=== PATIENT | female | born 1965 | race Caucasian/White ===

== ENCOUNTER → 2017-07-03 | Outpatient (CLI) | payer MEDICARE, OTHER ==
--- NOTE | 2017-07-08 08:40 | MM ---
Reason for exam: screening (asymptomatic). Last mammogram was performed 6 years and 9 months ago. History: Patient is postmenopausal and is nulliparous. Family history of breast cancer in aunt. Took hormonal contraceptives for 9 years. Physical Findings: A clinical breast exam by your physician is recommended on an annual basis and results should be correlated with mammographic findings. MG 3D Screening Mammo W/Cad Bilateral CC and MLO view(s) were taken. Prior study comparison: September 25, 2010, bilateral digital screening mammo w/CAD. There are scattered fibroglandular densities. There is chronic nodularity in the left breast. Benign secretory calcifications on the right breast and benign bilateral oil cysts are new/increased from prior. No significant changes when compared with prior studies. ASSESSMENT: Negative, BI-RAD 1 RECOMMENDATION: Routine screening mammogram of both breasts in 1 year.
== END | disposition home or self-care (01) ==
LOC: RADMAMWWP 14:41
PROVIDERS: ATTEND Family Medicine
DX: Z12.31 Encounter for screening mammogram for malignant neoplasm of breast (principal)
CPT/HCPCS: 77063; G0202

== ENCOUNTER → 2018-09-23 | Outpatient (CLI) | payer MEDICARE, OTHER ==
--- NOTE | 2018-09-23 11:49 | CT ---
EXAMINATION TYPE: CT angio chest DATE OF EXAM: 09/23/2018 COMPARISON: CTA chest January 06, 2016 HISTORY: Shortness of breath with history of PE CT DLP: 816.5 mGycm. Automated Exposure Control for Dose Reduction was Utilized. CONTRAST: CTA scan of the thorax is performed with IV Contrast, patient injected with 100 mL of Isovue 370, pul monary embolism protocol. MIP Images are created on CT scanner and reviewed. FINDINGS: LUNGS: Respiratory motion artifact degradation is seen making evaluation suboptimal. There is left mi dlung linear scarring and/or atelectasis near axial image 59 redemonstrated new from prior. No pleura l effusion or pneumothorax is evident bilaterally. No suspicious focal consolidation is seen. Tracheo bronchial tree is patent. No suspicious parenchymal masses are noted. MEDIASTINUM: There is suboptimal bolus with near equal contrast seen in right and left heart systems but there is no CT evidence for acute central or lobar or even segmental pulmonary embolism. Cannot e xclude small subsegmental pulmonary embolism in entirety. There are no new greater than 1 cm hilar o r mediastinal lymph nodes. Prominent but subcentimeter prevascular lymph nodes near axial image 43 ar e redemonstrated and felt stable. Tiny pericardial effusion is seen anterior inferior aspect axial im age 89 slightly larger from prior. OTHER: Liver remains low dense consistent with diffuse fatty infiltration. Lap band device epigastric region is stable in position. Moderate to severe multilevel spurring in the mid to lower thoracic sp ine is present. IMPRESSION: 1. Suboptimal study without CT evidence of clinically significant pulmonary embolism. No suspicious n ew acute pulmonary process.
== END ==
LOC: RADCTMAIN 10:21
PROVIDERS: ATTEND Family Medicine
DX: R07.9 Chest pain, unspecified (principal); R06.02 Shortness of breath
CPT/HCPCS: 82565; 84520; 71275; 36415; Q9967

== ENCOUNTER → 2018-11-06 | Outpatient (CLI) | payer MEDICARE, OTHER ==
--- NOTE | 2018-11-06 08:54 | US ---
EXAMINATION TYPE: US abdomen complete DATE OF EXAM: 11/06/2018 COMPARISON: NONE CLINICAL HISTORY: R10.84 gen abd pain R11.0 nausea. Intermittent ABD pain for 2 months, nausea, histo ry of lap band surgery EXAM MEASUREMENTS: Liver Length: 19.9 cm Gallbladder Wall: 0.2 cm CBD: 0.3 cm Spleen: 12.0 cm Right Kidney: 11.5 x 5.0 x 4.6 cm Left Kidney: 11.2 x 5.9 x 4.7 cm Technical limitations due to patient's body habitus and large amount of overlying bowel content Pancreas: Obscured by bowel gas Liver: limited evaluation, enlarged, heterogeneous, attenuating, unable to penetrate Gallbladder: no evidence of stones as visualized Evidence for sonographic Rodriguez's sign: no CBD: limited evaluation Spleen: appears wnl Right Kidney: no evidence of hydronephrosis Left Kidney: cystic area medial = 1.0 x 0.9 x 1.3cm Upper IVC: Obscured by overlying bowel gas Abd Aorta: obscured by overlying bowel gas The liver is enlarged and heterogenous. The intrahepatic portion of the IVC and proximal abdominal ao rta are within normal limits. There is no evidence of cholelithiasis. Common bile duct is unremarka ble. The visualized portions of the pancreas are homogenous. The spleen is unremarkable. Kidneys a re symmetric and free of hydronephrosis. No solid renal lesions are seen. Left renal cysts noted. IMPRESSION: 1. Hepatomegaly with probable underlying hepatic steatosis versus diffuse hepatocellular disease. 2. Left renal cyst.
== END | disposition home or self-care (01) ==
LOC: RADUSWWP 08:07
PROVIDERS: ATTEND Family Medicine
DX: N28.1 Cyst of kidney, acquired (principal); R16.0 Hepatomegaly, not elsewhere classified
CPT/HCPCS: 76700

== ENCOUNTER → 2021-02-15 | Outpatient (CLI) | payer MEDICARE, OTHER | END | disposition home or self-care (01) | CPT/HCPCS: 78226; A9537 ==

== ENCOUNTER → 2021-10-17 | Outpatient (CLI) | payer MEDICARE, OTHER ==
--- NOTE | 2021-10-18 12:38 | MM ---
Reason for exam: screening (asymptomatic). Last mammogram was performed 4 years and 4 months ago. History: Patient is postmenopausal and is nulliparous. Family history of breast cancer in aunt. Took hormonal contraceptives for 9 years. Physical Findings: A clinical breast exam by your physician is recommended on an annual basis and results should be correlated with mammographic findings. MG 3D Screening Mammo W/Cad Bilateral CC and MLO view(s) were taken. Prior study comparison: July 03, 2017, bilateral MG 3d screening mammo w/cad. There are scattered fibroglandular densities. There is chronic nodularity in the left breast. Benign bilateral secretory and oil cyst calcifications. No significant changes when compared with prior studies. ASSESSMENT: Benign, BI-RAD 2 RECOMMENDATION: Routine screening mammogram of both breasts in 1 year.
== END | disposition home or self-care (01) ==
LOC: RADMAMWWP 07:01
PROVIDERS: ATTEND Family Medicine
DX: Z12.31 Encounter for screening mammogram for malignant neoplasm of breast (principal)
CPT/HCPCS: 77063; 77067

== ENCOUNTER → 2022-01-02 | Outpatient (CLI) | payer MEDICARE, OTHER ==
[2022-01-02 15:25] VITALS: BP 152/84; PULSE 85; RESP 12; TEMP 98.9; BMI 46.2
--- NOTE | 2022-01-02 15:34 | P.BASOAP ---
Subjective Progress Note Date: 01/02/22 Principal diagnosis: Morbid obesity 56-year-old female with history of prior lap band placement. Patient says that starting 8 weeks ago she had dysphagia with food was getting caught frequently. The symptoms lasted for about 6 weeks in a been absent for the last 2 weeks. Mild discomfort when that was happening. No pain now. No heartburn. Patient thought her band might be empty. Objective - Vital Signs Vital signs: Vital Signs Temp 98.9 F 01/02/22 14:53 Pulse 85 01/02/22 14:53 Resp 12 01/02/22 14:53 BP 152/84 01/02/22 14:53 Pulse Ox FiO2 Intake & Output 01/01/22 01/02/22 01/02/22 18:59 06:59 18:59 Weight 118.388 kg - Exam Abdomen: Soft, nontender, nondistended Assessment/Plan (1) Morbid obesity Narrative/Plan: 56-year-old female with morbid obesity. Options reviewed. Will empty the band at this time. Check esophagogram. The patient's lap band port was palpated. The site was aseptically prepped. The Mar needle was advanced into the port. A total of 1 ml of fluid was removed. Band is now empty. Pressure was held and a sterile dressing was applied. Plan: Date: 01/02/22 Initial Weight: Initial BMI: Current Weight: 118.388 kg Current BMI: 46.2 Type of Surgery: Total Volume in Band: Previous Volume: Volume Removed: Volume Added: Band Size:
== END | disposition home or self-care (01) ==
LOC: BARWHC3 14:53
PROVIDERS: ATTEND Surgery
DX: E66.01 Morbid (severe) obesity due to excess calories (principal); Z68.42 Body mass index [BMI] 45.0-49.9, adult
CPT/HCPCS: 99212

== ENCOUNTER → 2022-01-23 | Outpatient (CLI) | payer MEDICARE, OTHER ==
--- NOTE | 2022-01-23 15:17 | FL ---
EXAMINATION TYPE: FL barium swallow DATE OF EXAM: 01/23/2022 CLINICAL INDICATION: 56-year-old female R1 3.10, unspecified dysphagia. Patient with history of lap b and placement 2005. Sensation of food getting stuck at the mid chest. COMPARISON: Total Fluoroscopy Time: 40 seconds 29 images obtained. FINDINGS: The swallowing mechanism is normal and hypopharyngeal anatomy is preserved. The cervical and thoraci c portions have a normal course and caliber. Very mild occasional tertiary wave contractions are demo nstrated. The mucosa is normal and no persistent filling defect is encountered. No hiatal hernia is p resent. There is prompt passage of contrast from the esophagus in the proximal stomach. Patient's lap band is visualized. There is approximately 30 degree angulation of the left and an adequate passage of contr ast across the lap band into the mid to distal stomach. IMPRESSION: 1. No restriction at the lap band. 30 degrees of angulation of the lap-band is unchanged from the [facility]'s 09/23/2018 CT chest. 2. Otherwise, normal esophagram. No stricture or filling defect.
== END | disposition home or self-care (01) ==
LOC: RADUSWWP 13:11
PROVIDERS: ATTEND Surgery
DX: R13.10 Dysphagia, unspecified (principal)
CPT/HCPCS: 74220

== ENCOUNTER → 2022-01-23 | Outpatient (CLI) | payer MEDICARE, OTHER ==
[2022-01-23 14:34] VITALS: BP 147/81; PULSE 95; RESP 16; TEMP 98.5; BMI 45.7
--- NOTE | 2022-01-23 14:49 | P.BASOAP ---
Subjective Progress Note Date: 01/23/22 Principal diagnosis: Morbid obesity Patient returns after being seen on 01/02. Band was emptied at that time for complaints of dysphagia. 1 mL was removed. Band is now empty. Patient went today for upper GI which shows an no definite obstruction or prolapse on my review. Official report pending. Patient did have an episode of dysphagia chicken over the weekend but doing fine now. Objective - Vital Signs Vital signs: Vital Signs Temp 98.5 F 01/23/22 14:30 Pulse 95 01/23/22 14:30 Resp 16 01/23/22 14:30 BP 147/81 01/23/22 14:30 Pulse Ox FiO2 Intake & Output 01/22/22 01/23/22 01/23/22 18:59 06:59 18:59 Weight 117.027 kg - Exam Abdomen: Soft, nontender, nondistended Assessment/Plan (1) Morbid obesity Narrative/Plan: 56-year-old female with morbid obesity. Doing well with her band empty other than 1 episode of dysphagia over the weekend. Options of band removal or keeping band empty for now are reviewed. She would like to keep the band empty to see how she does. She will follow up with us as needed. Plan: Date: 01/23/22 Initial Weight: 117.027 kg Initial BMI: 45.7 Current Weight: 117.027 kg Current BMI: 45.7 Type of Surgery: Adjustable Gastric Banding Total Volume in Band: 0 Previous Volume: Volume Removed: Volume Added: Band Size:
== END | disposition home or self-care (01) ==
LOC: BARWHC3 12:42
PROVIDERS: ATTEND Surgery
DX: E66.01 Morbid (severe) obesity due to excess calories (principal); Z68.42 Body mass index [BMI] 45.0-49.9, adult
CPT/HCPCS: 99211

== ENCOUNTER → 2023-04-04 | Outpatient (CLI) | payer MEDICARE, OTHER ==
--- NOTE | 2023-04-04 14:32 | P.SLEEP ---
History of Present Illness DATE: 04/04/2023 CONSULTATION/NEW PATIENT EVALUATION HISTORY OF PRESENT ILLNESS/SLEEP-WAKE EVALUATION: 57-year-old lady had been evaluated in the sleep center for obstructive sleep apnea hypopnea syndrome. Home sleep apnea test which was done by another institution on 10/31/2022 showed the patient has obstructive sleep apnea hypopnea syndrome with apnea-hypopnea index 11.4. According to patient sleep test was done while she slept in the chair, subsequently in reality patient has significantly more severe abnormalities of respiration. SLEEP SCHEDULE: Usually sleep schedule from 9 PM to 10 AM. FALLING ASLEEP: Sometimes patient has problems with falling asleep. DURING SLEEP: Patient sleeps on the chair. She snores and wakes up from sleep about 7 times with up to 3 episodes of nocturia. No history of hypnogogical hallucinations, sleep paralysis, or cataplexy. DURING THE DAY/WAKE STATE: In the morning patient wake up tired, has difficulties to pay attention, falling asleep during the day.. [place] sleepiness scale is increased to 12. Patient may take up to 3 naps during the day. PAST MEDICAL HISTORY: Hypertension, acid reflux, hypothyroidism, diabetes mellitus, hyperlipidemia, gout, schizoaffective disorder, asthma, ADD, chronic kidney disease stage 3. PAST SURGICAL HISTORY: None. MEDICATIONS: Lisinopril 10 mg once a day, allopurinol 100 mg once a day, atorvastatin 20 mg once a day, metformin 500 mg 2 tablets twice a day, metoprolol 50 mg once a day, prazosin 1 mg once a day, spironolactone 50 mg once a day, Synthroid 100 g once a day, omeprazole 40 mg once a day, benztropine 1 mg 2 tablets in the morning. SOCIAL HISTORY: Negative for smoking or using alcohol. FAMILY HISTORY: Heart problems, stroke, cancer. REVIEW OF SYSTEMS: Snoring, multiple awakenings from sleep, sleepiness during the day. No fevers. No double vision. No recent chest pain. No shortness of breath. No abdominal pain. No bleeding episodes. No blood in urine. No seizure episodes. PHYSICAL EXAMINATION: GENERAL: A pleasant patient without any distress. VITAL SIGNS: BP 124/79 , HR 81 , RR 12 , weight 246.8 pounds, height 5 foot 1 inches, body mass index 46.4 . HEENT: PERRLA, EOMI. Evaluation of oropharynx showed tongue protrudes midline, low position of soft palate Mallampati 4. NECK: Supple. No JVD. Thyroid is not palpable. 16 inches in circumference. LUNGS: Clear to percussion and to auscultation. Good air exchange. No wheezing or rhonchi. HEART: S1, S2 regular. No murmurs, gallops or rubs. ABDOMEN: Soft and nontender. Bowel sounds are present. No organomegaly appreciated. EXTREMITIES: No clubbing or cyanosis. SCARF AND ANNEAL OPERATOR: Awake, alert, and oriented x3. Cranial nerves 2 to 7 intact. There is no fasciculation or atrophy noted. No focal deficits observed. ASSESSMENT: 1. Snoring, multiple awakenings from sleep, extremely low position of soft palate Mallampati 4, wide neck 16 inches in circumference, significant excessive daytime sleepiness with [place] Sleepiness Scale 12, patient sleeps on the chair. Results of home sleep apnea test which was done in another institution i n the chair position showed apnea-hypopnea index 11 times per hour, which significantly underestimate severity of sleep apnea if patient will be in bed position. 2. Obesity, body mass index 46.4. 3. Hypertension. 4. Gout. 5 history of schizophrenia. 6 . Diabetes mellitus. 7. Hypothyroidism. 8. History of ADD. 9. History of chronic kidney disease stage III. PLAN: 1. CPAP/BiPAP titration for correction of respiratory abnormalities during sleep. 2. Aggressive losing weight 3. Preferable position during sleep on the side. 4. No driving if patient feels any sleepiness. Patient is aware of civil and criminal liability for unsafe driving. 5. Sleep hygiene with regular sleep time for at least 7.5-8 hours. 6. I'll see patient for follow-up visit after sleep study to discuss results of the test and following plan Thank you very much for referring this patient for consultation. Sincerely, Garcia Patton MD, PhD, FAASM. Diplomat of [place] [employer], Sleep Medicine Board by [place] [employer] [place] [employer] [facility] Past Medical History Past Medical History: Asthma, Diabetes Mellitus, GERD/Reflux, Hyperlipidemia, Hypertension, Pulmonary Embolus (PE), Sleep Apnea/CPAP/BIPAP Additional Past Medical History / Comment(s): sinus problems, arthritis History of Any Multi-Drug Resistant Organisms: None Reported Past Surgical History: Adenoidectomy, Bariatric Surgery, Orthopedic Surgery, Tonsillectomy Additional Past Surgical History / Comment(s): sinus surgery, ovarian cyst removed, D&C Past Anesthesia/Blood Transfusion Reactions: Motion Sickness Smoking Status: Never smoker - Past Family History Mother Family Medical History: Diabetes Mellitus, GERD/Reflux, Hypertension, Osteoarthritis (OA) Medications and Allergies Home Medications Medication Instructions Recorded Confirmed Type Atorvastatin [Lipitor] 10 mg PO HS 12/31/14 01/24/22 History Methylphenidate HCl [Ritalin] 30 mg PO DAILY 12/31/14 01/24/22 History Metoprolol Succinate [Toprol XL] 50 mg PO DAILY 12/31/14 01/24/22 History lisinopriL 10 mg PO DAILY 12/31/14 01/24/22 History Albuterol Sulfate [Proair 90 mcg PO QID PRN 01/02/22 01/24/22 History Respiclick] Aspirin [Myra Aspirin EC] 81 mg PO DAILY 01/02/22 01/24/22 History Ketoconazole 2% Cream [Nizoral 2%] 2 % TOPICAL BID 01/02/22 01/24/22 History Levothyroxine Sodium 100 mcg PO DAILY 01/02/22 01/24/22 History Lurasidone HCl [Latuda] 120 mg PO DAILY 01/02/22 01/24/22 History Omeprazole [PriLOSEC] 20 mg PO DAILY 01/02/22 01/24/22 History Spironolactone 25 mg PO DAILY 01/02/22 01/24/22 History allopurinoL [Zyloprim] 100 mg PO DAILY 01/02/22 01/24/22 History metFORMIN HCL ER [Glucophage XR] 500 mg PO BID 01/02/22 01/24/22 History Allergies Allergy/AdvReac Type Severity Reaction Status Date / Time bupropion HCl Allergy Intermediate Rash/Hives Verified 07/16/22 16:16 [From Wellbutrin] ezetimibe [From Zetia] Allergy Intermediate Rash/Hives Verified 07/16/22 16:16 tetracycline Allergy Intermediate Nausea & Verified 07/16/22 16:16 Vomiting Sleep Note - Sleep Note Sleep Note: Temperature: Pulse Rate: Respiratory Rate: Blood Pressure: SpO2: Height: Weight: BMI: Neck Circumference:
== END ==
LOC: 3 N SLEEP 13:43
PROVIDERS: ATTEND Internal Medicine
DX: G47.30 Sleep apnea, unspecified (principal); E66.9 Obesity, unspecified; I10 Essential (primary) hypertension; M10.9 Gout, unspecified; F98.8 Other specified behavioral and emotional disorders with onset usually occurring in childhood and adolescence; E03.9 Hypothyroidism, unspecified; E11.22 Type 2 diabetes mellitus with diabetic chronic kidney disease; N18.30 Chronic kidney disease, stage 3 unspecified; K21.9 Gastro-esophageal reflux disease without esophagitis; J45.909 Unspecified asthma, uncomplicated; E78.5 Hyperlipidemia, unspecified; F20.9 Schizophrenia, unspecified; I26.99 Other pulmonary embolism without acute cor pulmonale; M19.90 Unspecified osteoarthritis, unspecified site; Z79.899 Other long term (current) drug therapy; Z79.51 Long term (current) use of inhaled steroids; Z68.42 Body mass index [BMI] 45.0-49.9, adult; Z79.890 Hormone replacement therapy; Z88.8 Allergy status to other drugs, medicaments and biological substances; Z79.84 Long term (current) use of oral hypoglycemic drugs
CPT/HCPCS: 99211

== ENCOUNTER → 2023-08-01 | Outpatient (CLI) | payer MEDICARE, OTHER ==
--- NOTE | 2023-08-01 15:31 | P.PN ---
Subjective DATE: 08/01/2023 FOLLOW UP VISIT. Patient with obstructive sleep apnea hypopnea syndrome return to sleep center for follow-up visit. Recently patient had sleep study which documented obstructive sleep apnea hypopnea syndrome. Patient was initiated on PAP therapy and today is first visit after treatment was started. Patient was able to use PAP equipment every night for the whole night. The patient does not have significant problems with the mask, PAP pressure and humidification. [place] sleepiness scale is 12. I checked information from PAP unit. PAP unit pressure maximal inspiratory pressure 16, minimal expiratory pressure 6, pressure-support 4, average pressure 12.1 /8.1 cm H2O. Usage is 80% and 77 % for more then 4 hours, average 8.5 hours per night. Leak is 20.5 l/m, which is in acceptable range. Apnea Hypopnea Index is 4.6, which is normal. MEDICATIONS:1. Lisinopril 10 mg once a day 2. Allopurinol 100 mg once a day 3. Atorvastatin 20 mg once a day 4. Metformin 500 mg 2 tablets twice a day 5. Metoprolol 50 mg once a day 6. Synthroid 100 g once a day 7. Omeprazole 40 mg once a day 8. Spironolactone 50 once a day During physical exam: GENERAL: A pleasant patient without any distress. VITAL SIGNS: BP 145/73, HR 85, RR 12 , weight 231.0, temperature 98.3, oxygen saturation at room air 99% . HEENT: PERRLA, EOMI.low position of soft palate, Mallapati 4 . NECK: Supple. No JVD. LUNGS: Clear to percussion and to auscultation. Good air exchange. No wheezing or rhonchi. HEART: S1, S2 regular. ABDOMEN: Soft and nontender. Obese EXTREMITIES: No clubbing or cyanosis. DIAGNOSTIC TECHNICIAN: Awake, alert, and oriented x3. No focal deficit. Impressions: 1. Obstructive sleep apnea-hypopnea syndrome. Patient demonstrated good co mpliance with treatment, benefiting from treatment. 2. Obesity, patient lost 15 pounds since previous visit. 3. Hypertension. 4. Gout 5. History of she schizophrenia.. 6. Diabetes mellitus. 7. Hypothyroidism. 8. History of ADD. 9. History of chronic kidney disease stage III. Plan: 1. Continue using PAP equipment every night for the whole night. 2. To change air filter at least 1-2 times per month. 3. PAP unit should stay lower then position of the head. 4. Advised patient to remove all remaining water from humidifier canister daily and make it dry after each usage. Refill canister with fresh distilled water before each usage. 5. Sleep hygiene with regular time in bed for at least 8 hours. 6. Precautions related to driving. No driving if feel any sleepiness. 7. I will maintain prescription for PAP supplies including mask, tube, filters. 8. Follow up visit in 6 months or earlier if patient has any problems. 9. Watching and losing weight. Thank you very much for allowing me to participate in the management of your patient. Garcia Patton MD, PhD, FAASM. Diplomat of [place] [employer], Sleep Medicine Board by [place] [employer] Medicine [employer] [facility] [place]
== END ==
LOC: 3 N SLEEP 14:57
PROVIDERS: ATTEND Internal Medicine
DX: G47.33 Obstructive sleep apnea (adult) (pediatric) (principal); E66.9 Obesity, unspecified; E03.9 Hypothyroidism, unspecified; E11.22 Type 2 diabetes mellitus with diabetic chronic kidney disease; F20.9 Schizophrenia, unspecified; I12.9 Hypertensive chronic kidney disease with stage 1 through stage 4 chronic kidney disease, or unspecified chronic kidney disease; N18.30 Chronic kidney disease, stage 3 unspecified; M10.9 Gout, unspecified; F98.8 Other specified behavioral and emotional disorders with onset usually occurring in childhood and adolescence; Z79.84 Long term (current) use of oral hypoglycemic drugs; Z79.890 Hormone replacement therapy; Z79.899 Other long term (current) drug therapy; Z99.89 Dependence on other enabling machines and devices; Z88.8 Allergy status to other drugs, medicaments and biological substances; Z79.82 Long term (current) use of aspirin
CPT/HCPCS: 99212

== ENCOUNTER 2024-01-15 09:27 | Emergency (ER) | payer OTHER ==
--- NOTE | 2024-01-15 10:07 | ED ---
General Adult HPI - General Chief complaint: Abdominal Pain Stated complaint: constipation Time Seen by Provider: 01/15/24 10:05 Source: patient, RN notes reviewed Mode of arrival: ambulatory Limitations: no limitations - History of Present Illness Initial comments: This is a 58 year old female who presents to the emergency department for constipation. States that this has been an ongoing problem for the last couple of weeks. She did have a bowel movement this morning, but states that it was only very small hard pieces. She tried to give herself a Fleet enema last night, but states that she struggled with this and does not believe that she got much in. She was unable to produce much of a bowel movement afterwards. She saw her primary care provider who advised that if this was not effective she should go to the emergency department for further evaluation and management. Denies any abdominal pain, nausea, or vomiting. She is still passing gas. - Related Data Home Medications Medication Instructions Recorded Confirmed Atorvastatin [Lipitor] 10 mg PO HS 12/31/14 01/24/22 Methylphenidate HCl [Ritalin] 30 mg PO DAILY 12/31/14 01/24/22 Metoprolol Succinate [Toprol XL] 50 mg PO DAILY 12/31/14 01/24/22 lisinopriL 10 mg PO DAILY 12/31/14 01/24/22 Albuterol Sulfate [Proair 90 mcg PO QID PRN 01/02/22 01/24/22 Respiclick] Aspirin [[place] Aspirin EC] 81 mg PO DAILY 01/02/22 01/24/22 Ketoconazole 2% Cream [Nizoral 2%] 2 % TOPICAL BID 01/02/22 01/24/22 Levothyroxine Sodium 100 mcg PO DAILY 01/02/22 01/24/22 Lurasidone HCl [Latuda] 120 mg PO DAILY 01/02/22 01/24/22 Omeprazole [PriLOSEC] 20 mg PO DAILY 01/02/22 01/24/22 Spironolactone 25 mg PO DAILY 01/02/22 01/24/22 allopurinoL [Zyloprim] 100 mg PO DAILY 01/02/22 01/24/22 metFORMIN HCL ER [Glucophage XR] 500 mg PO BID 01/02/22 01/24/22 Previous Rx's Medication Instructions Recorded Lactulose 20 gm PO DAILY PRN #473 ml 01/15/24 Allergies Allergy/AdvReac Type Severity Reaction Status Date / Time bupropion HCl Allergy Intermediate Rash/Hives Verified 01/15/24 10:05 [From Wellbutrin] ezetimibe [From Zetia] Allergy Intermediate Rash/Hives Verified 01/15/24 10:05 tetracycline Allergy Intermediate Nausea & Verified 01/15/24 10:05 Vomiting Review of Systems ROS Statement: Those systems with pertinent positive or pertinent negative responses have been documented in the HPI. ROS Other: All systems not noted in ROS Statement are negative. Past Medical History Past Medical History: Asthma, Diabetes Mellitus, GERD/Reflux, Hyperlipidemia, Hypertension, Pulmonary Embolus (PE), Sleep Apnea/CPAP/BIPAP Additional Past Medical History / Comment(s): sinus problems, arthritis History of Any Multi-Drug Resistant Organisms: None Reported Past Surgical History: Adenoidectomy, Bariatric Surgery, Orthopedic Surgery, Tonsillectomy Additional Past Surgical History / Comment(s): sinus surgery, ovarian cyst removed, D&C Past Anesthesia/Blood Transfusion Reactions: Motion Sickness Past Psychological History: Anxiety, Depression, Schizoaffective Disorder Smoking Status: Never smoker - Past Family History Mother Family Medical History: Diabetes Mellitus, GERD/Reflux, Hypertension, Osteoarthritis (OA) General Exam Limitations: no limitations General appearance: alert, in no apparent distress Head exam: Present: atraumatic, normocephalic, normal inspection Respiratory exam: Present: normal lung sounds bilaterally. Absent: respiratory distress, wheezes, rales, rhonchi, stridor Cardiovascular Exam: Present: regular rate, normal rhythm, normal heart sounds. Absent: systolic murmur, diastolic murmur, rubs, gallop, clicks GI/Abdominal exam: Present: soft, normal bowel sounds. Absent: distended, tenderness, guarding, rebound, rigid Neurological exam: Present: alert, oriented X3, CN II-XII intact Psychiatric exam: Present: normal affect, normal mood Skin exam: Present: warm, dry, intact, normal color. Absent: rash Course Vital Signs 01/15/24 01/15/24 01/15/24 10:02 13:36 17:42 Temperature 98 F 98.4 F Pulse Rate 82 67 76 Respiratory 18 16 18 Rate Blood Pressure 116/82 121/79 123/75 O2 Sat by Pulse 96 100 99 Oximetry Medical Decision Making - Medical Decision Making This is a 58 year old female who presents to the emergency department for constipation. Was pt. sent in by a medical professional or institution? @ -No Did you speak to anyone other than the patient for history? @ -No Did you review nursing and triage notes? @ -Yes, and I agree, it is accurate with regards to the patient's symptoms. Were old charts reviewed? @ -No Differential Diagnosis? @ -Differential Constipation: Dehydration, dietary intake, medications, bowel obstruction, this is not meant to be an all-inclusive list. EKG interpreted by me (3pts min.)? @ -Not obtained X-rays interpreted by me (1pt min.)? @ -KUB x-ray obtained. My interpretation identifies no dilation of the large or small bowel loops. CT interpreted by me (1pt min.)? @ -Not obtained U/S interpreted by me (1pt. min.)? @ -Not obtained What testing was considered but not performed? (CT, X-rays, U/S, labs)? Why? @ -None What meds were considered but not given? Why? @ -None Did you discuss the management of the patient with other professionals? @ -No Did you reconcile home meds? @ -No Was smoking cessation discussed for >3mins.? @ -No Was critical care preformed (if so, how long)? @ -No Were there social determinants of health that impacted care today? How? (Homelessness, low income, unemployed, alcoholism, drug addiction, transportation, low edu. Level, literacy, decrease access to med. care, [facility], rehab)? @ -No Was there de-escalation of care discussed even if they declined? (Discuss DNR or withdrawal of care, Hospice)? @ -No What co-morbidities impacted this encounter? (DM, HTN, Smoking, COPD, CAD, Cancer, CVA, Hep., AIDS, mental health diagnosis, sleep apnea, morbid obesity)? @ -None Was patient admitted / discharged? @ -Discharged. KUB x-ray obtained demonstrating fecal material and gas throughout the colon and rectum. There was no evidence for any acute process. Milk molasses enema was administered. Patient was able to produce a bowel movement, but states that she still felt like she was impacted. We did attempt a manual disimpaction, however there was no stool palpated in the rectum. Advised that the residual stool is higher up, and we will add a medication to her bowel regimen. Prescription for lactulose provided with dosing instructions reviewed. Advised drinking plenty of fluids and close follow-up with her primary care provider. Undiagnosed new problem with uncertain prognosis? @ -None Drug Therapy requiring intensive monitoring for toxicity (Heparin, Nitro, Insulin, Cardizem)? @ -None Were any procedures done? @ -None Diagnosis/symptom? @ -Constipation Acute, or Chronic, or Acute on Chronic? @ -Acute Uncomplicated (without systemic symptoms) or Complicated (systemic symptoms)? @ -Uncomplicated Side effects of treatment? @ -None Exacerbation, Progression, or Severe Exacerbation] @ -Not applicable Poses a threat to life or bodily function? @ -No Return precautions reviewed in depth, the patient is instructed to return to the emergency department with any new, worsening, or concerning symptoms. Patient verbalized understanding. This case was discussed in detail with the attending ED physician, Dr. Shaw. Presentation, findings, and treatment plan discussed in detail as well. - Radiology Data Radiology results: report reviewed, image reviewed Disposition Clinical Impression: Constipation Disposition: HOME SELF-CARE Instructions (If sedation given, give patient instructions): Constipation (ED) Additional Instructions: Return to the emergency department with any new, worsening, or concerning symptoms. Try taking the lactulose daily in conjunction with the other medication. Increase your fluid intake. Follow up with your primary care provider in 1-2 days. Prescriptions: Lactulose 20 gm PO DAILY PRN #473 ml PRN Reason: Constipation Is patient prescribed a controlled substance at d/c from ED?: No Referrals: Keyana Neff DO [Primary Care Provider] - 1-2 days Time of Disposition: 17:20
--- NOTE | 2024-01-15 11:10 | XR ---
EXAMINATION TYPE: XR KUB DATE OF EXAM: 01/15/2024 10:14 AM CLINICAL INDICATION:Female, 58 years old with history of Constipation; [facility] COMPARISON: None. TECHNIQUE: One radiographic view of the abdomen was obtained. FINDINGS: Band device is seen projecting in the left upper quadrant across to the right lower quadrant. The bow el gas pattern is nonspecific without dilated loops of small or large bowel. There is no evidence for organomegaly or pneumoperitoneum. The osseous structures are intact. No abnormal calcifications ar e present. Fecal material and gas in usual amount are demonstrated throughout the colon and rectum. IMPRESSION: Nonspecific bowel gas pattern without radiographic evidence for acute process.
[2024-01-15] MEDS: NA PHOS,M-B/NA PHOS,DI-BA 133 ML ENEMA RECTAL STA (14:16)
[2024-01-15 17:44] VITALS: BP 123/75; PULSE 76; RESP 18; TEMP 98.4
== END 2024-01-15 17:44 | disposition home or self-care (01) ==
LOC: EC 09:27
DX: K59.00 Constipation, unspecified (principal); Z88.8 Allergy status to other drugs, medicaments and biological substances
CPT/HCPCS: 74018; 99284

== ENCOUNTER → 2024-03-05 | Outpatient (CLI) | payer MEDICARE, OTHER ==
[2024-03-05 14:53] VITALS: BP 131/82; PULSE 68; RESP 16; TEMP 98
--- NOTE | 2024-03-05 15:15 | P.PROGSL ---
Subjective DATE: 03/05/2024 FOLLOW UP VISIT. Patient with obstructive sleep apnea hypopnea syndrome return to sleep center for follow-up visit. Information from previous visit have been reviewed. Patient is using PAP equipment every night for the whole night, getting PAP supplies in time. The patient does not have significant problems with the mask, PAP unit and humidification. [place] sleepiness scale is 9, which is borderline. I checked information from PAP unit. PAP unit pressure maximal inspiratory pressure 16, minimal expiratory pressure 6, pressure support 4, average pressure 12.8/8.8 cm H2O. Usage is 96% for more then 4 hours, average 7.1 hours per night. Leak is 14 l/m, which is in acceptable range. Apnea Hypopnea Index is 3.1, which is normal. MEDICATIONS have been reviewed, please see below. During physical exam: GENERAL: A pleasant patient without any distress. VITAL SIGNS: Please see below, weight is 240 lbs. HEENT: PERRLA, EOMI.low position of soft palate, Mallapati 4 . NECK: Supple. No JVD. LUNGS: Clear to percussion and to auscultation. Good air exchange. No wheezing or rhonchi. HEART: S1, S2 regular. ABDOMEN: Soft and nontender. Slightly obese EXTREMITIES: No clubbing or cyanosis. SKID WRAPPER: Awake, alert, and oriented x3. No focal deficit. Impressions: 1. Obstructive sleep apnea-hypopnea syndrome. Patient demonstrated great compliance with treatment, benefiting from treatment. 2. Obesity, BMI 45.3, patient increased her weight on 9 pounds comparing with the previous visit. 3. Hypertension. 4. Gout. 5. History of schizophrenia. 6. Diabetes mellitus. 7. History of chronic kidney disease stage III. 8. History of ADD. 9. Hypothyroidism. Plan: 1. Continue using PAP equipment every night for the whole night. 2. Sleep hygiene with regular time in bed for at least 7.5-8 hours 3. PAP unit should stay lower then position of the head. 4. Advised patient to remove all remaining water from humidifier canister daily and make it dry after each usage. Refill canister with fresh distilled water before each usage. 5. Watching and losing weight. 6. Precautions related to driving. No driving if feel any sleepiness. 7. I will maintain prescription for PAP supplies including mask, tube, filters. 8. Follow up visit in 6 months or earlier if patient has any problems. Thank you very much for allowing me to participate in the management of your patient. Garcia Patton MD, PhD, FAASM. Diplomat of [place] [employer], Sleep Medicine Board by [place] [employer] [facility] [place] cc: Keyana Neff DO Objective - Vital Signs Vital Signs: Vital Signs Temp 98 F 03/05/24 14:52 Pulse 68 03/05/24 14:52 Resp 16 03/05/24 14:52 BP 131/82 03/05/24 14:52 Pulse Ox 98 03/05/24 14:52 FiO2 Intake & Output 03/04/24 03/05/24 03/05/24 18:59 06:59 18:59 Weight 108.862 kg Home Medications: Home Medications Medication Instructions Recorded Confirmed Type Atorvastatin [Lipitor] 10 mg PO HS 12/31/14 03/05/24 History Methylphenidate HCl [Ritalin] 30 mg PO DAILY 12/31/14 01/24/22 History Metoprolol Succinate [Toprol XL] 50 mg PO DAILY 12/31/14 03/05/24 History lisinopriL 10 mg PO DAILY 12/31/14 01/24/22 History Albuterol Sulfate [Proair 90 mcg PO QID PRN 01/02/22 03/05/24 History Respiclick] Aspirin [[place] Aspirin EC] 81 mg PO DAILY 01/02/22 03/05/24 History Ketoconazole 2% Cream [Nizoral 2%] 2 % TOPICAL BID 01/02/22 03/05/24 History Levothyroxine Sodium 100 mcg PO DAILY 01/02/22 03/05/24 History Lurasidone HCl [Latuda] 120 mg PO DAILY 01/02/22 03/05/24 History Omeprazole [PriLOSEC] 20 mg PO DAILY 01/02/22 01/24/22 History Spironolactone 25 mg PO DAILY 01/02/22 01/24/22 History allopurinoL [Zyloprim] 100 mg PO DAILY 01/02/22 03/05/24 History Lactulose 20 gm PO DAILY PRN #473 ml 01/15/24 Rx Benztropine Mesylate 1 mg PO DAILY 03/05/24 03/05/24 History Montelukast [Singulair] 10 mg PO DAILY 03/05/24 03/05/24 History Olanzapine/Samidorphan Malate See Rx Instructions .ROUTE .COMPLEX 03/05/24 03/05/24 History [Lybalvi 20-10 mg Tablet] Prazosin [Minipress] 1 mg PO DAILY 03/05/24 03/05/24 History lamoTRIgine [LaMICtal Xr] 25 mg PO DAILY 03/05/24 03/05/24 History modafiniL 100 mg PO DAILY 03/05/24 03/05/24 History
== END ==
LOC: 3 N SLEEP 14:38
PROVIDERS: ATTEND Internal Medicine
DX: G47.33 Obstructive sleep apnea (adult) (pediatric) (principal); E66.9 Obesity, unspecified; M10.9 Gout, unspecified; E03.9 Hypothyroidism, unspecified; I12.9 Hypertensive chronic kidney disease with stage 1 through stage 4 chronic kidney disease, or unspecified chronic kidney disease; E11.22 Type 2 diabetes mellitus with diabetic chronic kidney disease; N18.30 Chronic kidney disease, stage 3 unspecified; F98.8 Other specified behavioral and emotional disorders with onset usually occurring in childhood and adolescence; Z99.89 Dependence on other enabling machines and devices; Z68.42 Body mass index [BMI] 45.0-49.9, adult; Z79.899 Other long term (current) drug therapy; Z79.890 Hormone replacement therapy; Z88.8 Allergy status to other drugs, medicaments and biological substances; Z88.1 Allergy status to other antibiotic agents
CPT/HCPCS: 99212

== ENCOUNTER → 2024-08-27 | Outpatient (CLI) | payer MEDICARE, OTHER ==
--- NOTE | 2024-08-27 15:04 | NM ---
EXAMINATION TYPE: NM hepatobiliary w EF DATE OF EXAM: 08/27/2024 2:44 PM COMPARISON: Ultrasound most recent XX. CT abdomen pelvis most recent from XX. CLINICAL INDICATION:Female, 59 years old with history of R93.2 ABNORMAL FINDINGS ON DX IMAGING OF [facility]; TECHNIQUE: The patient was given 4.4 mCi of Technetium 99m-Mebrofenin as a radiotracer and multiple scintigraphic images were obtained of the abdomen. Gallbladder function was also assessed after the a dministration of ensure drink and additional scintigraphic images were obtained of the abdomen. A reg ion of interest was drawn over the gallbladder and a timing activity curve was generated. The gallbla dder ejection fraction was calculated. FINDINGS: Normal uptake of radiotracer was identified within the liver with excretion into the hepatic and comm on biliary ducts within 10 min. There was normal progressive washout of the liver over the course of the study. Radiotracer uptake within the gallbladder at 10 minutes as well as small bowel activity wa s identified at 28 minutes. Maximum calculated gallbladder ejection fraction is: 79% at 30 minutes (Normal gallbladder ejection fraction is > 35%) IMPRESSION: 1. Normal hepatobiliary scan. 2. Normal ejection fraction. [facility], , 08/27/2024 3:01 PM
== END | disposition home or self-care (01) ==
LOC: RADNMMAIN 12:10
PROVIDERS: ATTEND Family Medicine
DX: R93.2 Abnormal findings on diagnostic imaging of liver and biliary tract (principal)
CPT/HCPCS: 78226; A9537

== ENCOUNTER → 2024-11-05 | Outpatient (CLI) | payer MEDICARE, OTHER ==
[2024-11-05 13:20] VITALS: BP 134/79; PULSE 64; RESP 18; TEMP 98.2
--- NOTE | 2024-11-05 13:40 | P.PROGSL ---
Subjective DATE: 11/05/2024 FOLLOW UP VISIT. Patient with obstructive sleep apnea hypopnea syndrome return to sleep center for follow-up visit. Information from previous visit have been reviewed. Patient is using PAP equipment every night for the whole night, getting PAP supplies in time. The patient does not have significant problems with the mask, PAP unit and humidification. [place] sleepiness scale is 1. I checked information from PAP unit. BPAP unit pressure maximal inspiratory pressure 16, minimal expiratory pressure 6, pressure support 4, average pressure 12/8 cm H2O. Usage is 70% for more then 4 hours, average 8.8 hours per night. Leak is 8 l/m, which is in acceptable range. Apnea Hypopnea Index is 3.0, which is normal. MEDICATIONS have been reviewed, please see below. During physical exam: GENERAL: A pleasant patient without any distress. VITAL SIGNS: Please see below, weight is 240.4 lbs. HEENT: PERRLA, EOMI.low position of soft palate, Mallapati 4 . NECK: Supple. No JVD. LUNGS: Clear to percussion and to auscultation. Good air exchange. No wheezing or rhonchi. HEART: S1, S2 regular. ABDOMEN: Soft and nontender. Obese EXTREMITIES: No clubbing or cyanosis. NURSING FACULTY: Awake, alert, and oriented x3. No focal deficit. Impressions: 1. Obstructive sleep apnea-hypopnea syndrome. Patient demonstrated good compliance with treatment, benefiting from treatment. 2. Hypertension. 3. Obesity. 4. Diabetes mellitus. 5. History of schizophrenia. 6. History of chronic kidney disease stage III. 7. Hypothyroidism. 8. History of ADD. Plan: 1. Continue using PAP equipment every night for the whole night. 2. Sleep hygiene with regular time in bed for at least 7.5-8 hours 3. PAP unit should stay lower then position of the head. 4. Advised patient to remove all remaining water from humidifier canister daily and make it dry after each usage. Refill canister with fresh distilled water before each usage. 5. Watching and losing weight. 6. Precautions related to driving. No driving if feel any sleepiness. 7. I will maintain prescription for PAP supplies including mask, tube, filters. 8. Follow up visit in 8 months or earlier if patient has any problems. Thank you very much for allowing me to participate in the management of your patient. Garcia Patton MD, PhD, FAASM. Diplomat of [place] [employer], Sleep Medicine Board by [place] [employer] Instructor of [facility] [place] Objective - Vital Signs Vital Signs: Vital Signs Temp 98.2 F 11/05/24 13:18 Pulse 64 11/05/24 13:18 Resp 18 11/05/24 13:18 BP 134/79 11/05/24 13:18 Pulse Ox 98 11/05/24 13:18 FiO2 Intake & Output 11/04/24 11/05/24 11/05/24 18:59 06:59 18:59 Weight 108.976 kg Home Medications: Home Medications Medication Instructions Recorded Confirmed Type Atorvastatin [Lipitor] 10 mg PO HS 12/31/14 03/05/24 History Methylphenidate HCl [Ritalin] 30 mg PO DAILY 12/31/14 01/24/22 History Metoprolol Succinate [Toprol XL] 50 mg PO DAILY 12/31/14 03/05/24 History lisinopriL 10 mg PO DAILY 12/31/14 01/24/22 History Albuterol Sulfate [Proair 90 mcg PO QID PRN 01/02/22 03/05/24 History Respiclick] Aspirin [[place] Aspirin EC] 81 mg PO DAILY 01/02/22 03/05/24 History Ketoconazole 2% Cream [Nizoral 2%] 2 % TOPICAL BID 01/02/22 03/05/24 History Levothyroxine Sodium 100 mcg PO DAILY 01/02/22 03/05/24 History Lurasidone HCl [Latuda] 120 mg PO DAILY 01/02/22 03/05/24 History Omeprazole [PriLOSEC] 20 mg PO DAILY 01/02/22 01/24/22 History Spironolactone 25 mg PO DAILY 01/02/22 01/24/22 History allopurinoL [Zyloprim] 100 mg PO DAILY 01/02/22 03/05/24 History Lactulose 20 gm PO DAILY PRN #473 ml 01/15/24 Rx Benztropine Mesylate 1 mg PO DAILY 03/05/24 03/05/24 History Montelukast [Singulair] 10 mg PO DAILY 03/05/24 03/05/24 History Olanzapine/Samidorphan Malate See Rx Instructions .ROUTE .COMPLEX 03/05/24 03/05/24 History [Lybalvi 20-10 mg Tablet] Prazosin [Minipress] 1 mg PO DAILY 03/05/24 03/05/24 History lamoTRIgine [LaMICtal Xr] 25 mg PO DAILY 03/05/24 03/05/24 History modafiniL 100 mg PO DAILY 03/05/24 03/05/24 History
== END ==
LOC: 3 N SLEEP 13:00
PROVIDERS: ATTEND Internal Medicine
DX: G47.33 Obstructive sleep apnea (adult) (pediatric) (principal); I10 Essential (primary) hypertension; E11.9 Type 2 diabetes mellitus without complications; E03.9 Hypothyroidism, unspecified; E66.9 Obesity, unspecified; Z68.41 Body mass index [BMI] 40.0-44.9, adult; Z86.59 Personal history of other mental and behavioral disorders; Z87.448 Personal history of other diseases of urinary system; Z88.8 Allergy status to other drugs, medicaments and biological substances; Z88.1 Allergy status to other antibiotic agents
CPT/HCPCS: 99212